=== PATIENT | male | born 1990 | race Caucasian/White ===

== ENCOUNTER 2024-02-13 11:45 | Emergency (ER) | payer OTHER, SELFPAY ==
[2024-02-13 11:52] VITALS: BP 158/90; PULSE 93; RESP 16; TEMP 36.6; O2SAT 98
[2024-02-13 11:55] VITALS: PULSE 102; O2SAT 92
--- NOTE | 2024-02-13 11:57 | DI.RAD.S_ITS ---
PROCEDURE: XR ANKLE RT MIN 3V INDICATIONS: fall TECHNIQUE: 3 views of the ankle were acquired. COMPARISON: None. FINDINGS: Bones: There is a moderately displaced distal fibular fracture, seen below the level of the syndesmosis. The syndesmosis does not appear widened. There is a moderately displaced, intra-articular medial malleolar fracture seen. There is a posterior malleolar fracture. The ankle mortise appears mildly widened. The talus is shifted laterally in relation to the tibial plafond. Soft tissues: Generalized soft tissue swelling is seen. IMPRESSION: Moderately displaced trimalleolar fracture. Dictated by: John Hernandez M.D. on 02/13/2024 at 11:12 Approved by: Jhon Hernandez M.D. on 02/13/2024 at 11:13
--- NOTE | 2024-02-13 11:57 | ED.LOWEXIN ---
HPI - Extremity Injury (Lower) General Chief Complaint: Extremity Injury, Lower Stated Complaint: rolled r ankle/ swelling Time Seen by Provider: 02/13/24 11:50 History of Present Illness HPI Narrative: 33-year-old gentleman no significant history stumbled last night and had an injury to the right ankle with significant forced flexion. When he awoke this morning the entire ankle is swollen he finds that is range of motion is limited and he is unable to bear weight. There was some minor swelling over the anterior portion of the foot. No other injuries appreciated Related Data Previous Rx's Medication Instructions Recorded oxycodone-acetaminophen 5 mg-325 1 tab PO Q6H PRN pain #20 tabs 02/13/24 mg tablet Allergies Allergy/AdvReac Type Severity Reaction Status Date / Time No Known Drug Allergies Allergy Verified 02/13/24 12:16 Review of Systems Review of Systems Narrative: Pertinent positive and negative findings as per HPI Patient History Social History Smoking Status: Current every day smoker Smoking Status: Current every day smoker tobacco type: cigarettes alcohol intake frequency: 0-2 drinks per day Exam Initial Vital Signs Initial Vital Signs: Vital Signs Temperature 98 F 02/13/24 11:52 Pulse Rate 93 H 02/13/24 11:52 Respiratory Rate 16 02/13/24 11:52 Blood Pressure 158/90 H 02/13/24 11:52 Pulse Oximetry 98 02/13/24 11:52 Oxygen Delivery Method Room Air 02/13/24 11:52 General: Alert appropriate in no acute distress Respiratory: Able to speak in full sentences, no obvious respiratory distress Skin: No obvious rashes, warm and dry Neurologic: Grossly intact no obvious asymmetries or abnormalities Psych: appropriate insight and affect, cooperative Extremity: Right ankle uniformly swollen with swelling extending across the dorsum of the foot. There is no pain to the toes with good capillary refill. Range of motion is limited in all planes. He does have minor tenderness with the palpation along both malleoli. He is unable to take a single step on the foot. Procedures Orthopedic Splinting/Casting Left ankle trimalleolar fracture: Time of procedure: 12:43 Side: left Lower Extremity Immobilizer: posterior splint and stirrup splint Other Orthopedic Equipment: crutches Post splinting neuro exam: intact Post splinting vascular exam: intact Placed by: Provider Course Orders Ordered: ED Orders 02/13/24 11:57 XR ankle RT min 3V Stat Vital Signs Vital signs: Vital Signs - 8 hr 02/13/24 11:52 Temperature 98 F Pulse Rate 93 H Respiratory Rate 16 Blood Pressure 158/90 H Pulse Oximetry 98 Oxygen Delivery Method Room Air MDM - Extremity Injury (Lower) MDM Narrative Medical decision making narrative: CC: Right ankle pain Complicating co-morbidities: None Data collected from: patient Differential considered: Ankle fracture, ankle sprain, more significant ligamentous injury Exam documented above, pertinent findings include: Right ankle is swollen decreased range of motion in all planes, tender malleoli bilaterally, unable to take a step Imaging studies independently reviewed: He has a tri malleolar fracture with the distal fibula slightly displaced Treatments: He is placed in a posterior short-leg cast with stirrup. Given crutches. Discussion: 33-year-old gentleman who presents after an ankle injury last night. Has a bi malleolar fracture. He is visiting from [place] and planning to return tomorrow. He is placed in a short-leg posterior splint with sugar-tong, given crutches instructed to not weight bear on that foot as this is an unstable fracture. He will need to follow up with the Orthopedic surgery once he is home. Recommended to call his primary care doctor for recommendations on orthopedic surgeons and follow up at that point. Did let him know that this very likely will need surgical intervention. Prescription for oxycodone/Tylenol given. Recommended keeping his leg elevated and as he was driving back to [place] at least 1 or 2 rest stops to make sure he gets up and walks around 4 mm true. Questions are answered and he is safe for discharge Discharge Plan Departure Patient Disposition: Home Clinical Impression: Closed fracture of ankle, trimalleolar Qualifiers: Encounter type: initial encounter Laterality: right Qualified Code(s): S82.851A - Displaced trimalleolar fracture of right lower leg, initial encounter for closed fracture Instructions: DI for Ankle Fracture Activity Restrictions/Additional Instructions: Thank you for coming in today You did a good job on drinking your ankle. There are actually 3 independent fractures in your ankle. This is an UNSTABLE joint. That means if you walk on it, you can make it significantly worse Using 400 mg of ibuprofen (2 [id number] pills) and 1 Tylenol every 6 hours can be very helpful in controlling pain. For severe pain use 400 mg of ibuprofen and 1 Percocet. Percocet is a narcotic and will cause constipation. Please picker and packer a stool softener(my favored is MiraLax) when you picker and packer the narcotic prescribe When you go back to [place], you will need to find an orthopedic surgeon for follow up and definitive treatment of this fracture. You very likely are going to need surgery. You may look into buying a knee scooter on [employer]. You likely are going to not be able to bear weight on this side for moderate amount of time If you find that you are having new symptoms something else is changing your develop new findings, you do need to be seen and re-evaluated Prescriptions: New oxycodone-acetaminophen 5-325 mg tablet 1 tab PO Q6H PRN (Reason: pain) Qty: 20 0RF Stand Alone Forms: Patient Portal/API
[2024-02-13 12:45] VITALS: BP 172/97; PULSE 103; O2SAT 96
[2024-02-13 12:52] VITALS: BP 172/97; PULSE 98; RESP 18; O2SAT 96
== END 2024-02-13 12:54 | disposition home or self-care (01) ==
PROVIDERS: Emergency Provider Emergency Medicine
DX: S82.851A Displaced trimalleolar fracture of right lower leg, initial encounter for closed fracture (principal); X50.1XXA Overexertion from prolonged static or awkward postures, initial encounter
CPT/HCPCS: 29515; 73610; 99283